=== PATIENT | male | born 1950 | race Caucasian/White ===

== ENCOUNTER 2016-05-29 08:00 | Outpatient (CLI) | payer MEDICARE | END 2016-05-29 23:59 | DX: R05 Cough (principal); Z12.5 Encounter for screening for malignant neoplasm of prostate | CPT/HCPCS: 36415; 80053; 80061; 82274; 83721; 85025; G0103 ==

== ENCOUNTER 2016-06-01 08:00 | Outpatient (CLI) | payer MEDICARE | END 2016-06-01 23:59 | DX: E78.5 Hyperlipidemia, unspecified (principal) ==

== ENCOUNTER 2016-08-15 13:50 | Outpatient (CLI) | payer MEDICARE | END 2016-08-15 13:51 | disposition home or self-care (01) | DX: D72.829 Elevated white blood cell count, unspecified (principal) ==

== ENCOUNTER 2017-01-17 10:59 | Outpatient (CLI) | payer MEDICARE ==
[2017-01-17 19:39] LABS: CHOL/HDL RATIO 6.1 (<5.0); CHOLESTEROL 202 mg/dL; HDL CHOLESTEROL 33 mg/dL; LDL/HDL RATIO 3.4 (<3.6); TRIGLYCERIDES 281 mg/dL; VLDL CHOLESTEROL 56 mg/dL
== END 2017-01-17 11:00 | disposition home or self-care (01) ==
LOC: LAB.F 10:59
PROVIDERS: ATTEND Nurse Practitioner Family
DX: E78.5 Hyperlipidemia, unspecified (principal)
CPT/HCPCS: 36415; 80061

== ENCOUNTER 2017-06-13 09:46 | Outpatient (CLI) | payer MEDICARE ==
[2017-06-13 18:09] LABS: CHOLESTEROL 175 mg/dL; HDL CHOLESTEROL 35 mg/dL; LDL CHOLESTEROL,CALCULATED 111 mg/dL; LDL/HDL RATIO 3.2 (<3.6); VLDL CHOLESTEROL 29 mg/dL
== END 2017-06-13 09:47 | disposition home or self-care (01) ==
LOC: LAB.F 09:46
PROVIDERS: ATTEND Family Medicine
DX: E78.5 Hyperlipidemia, unspecified (principal)
CPT/HCPCS: 36415; 80061; 83721

== ENCOUNTER 2017-12-20 10:58 | Outpatient (CLI) | payer MEDICARE ==
[2017-12-20 18:56] LABS: CHOL/HDL RATIO 7.4 (<5.0); CHOLESTEROL 222 mg/dL; HDL CHOLESTEROL 30 mg/dL
[2017-12-20 19:31] LABS: LDL CHOLESTEROL,DIRECT 67 mg/dL; LDLD/HDL RATIO 2.2 (<3.6)
== END 2017-12-20 10:59 | disposition home or self-care (01) ==
LOC: LAB.F 10:58
PROVIDERS: ATTEND Nurse Practitioner Family
DX: E78.5 Hyperlipidemia, unspecified (principal); Z12.5 Encounter for screening for malignant neoplasm of prostate
CPT/HCPCS: 36415; 80061; 83721; G0103; 84153

== ENCOUNTER 2018-03-27 10:39 | Outpatient (CLI) | payer MEDICARE ==
[2018-03-27 18:16] LABS: BASOPHILS % (AUTO) 0.3 %; EOSINOPHILS % (AUTO) 0.4 %; HGB - HEMOGLOBIN 15.8 g/dL (14.0-18.0); LYMPHOCYTES % (AUTO) 79.3 %; MEAN CORPUSCULAR HEMOGLOBIN 32.6 pg (27.0-31.0); MEAN CORPUSCULAR HGB CONC 33.3 g/dL (32.0-36.0); MEAN PLATELET VOLUME 9.3 fL (7.4-11.4); MONOCYTES % (AUTO) 1.7 %; NEUTROPHILS % (AUTO) 18.3 %; PLT - PLATELET COUNT 150 10^3/uL (130-450); RED BLOOD COUNT 4.85 10^6/uL (4.70-6.10); RED CELL DISTRIBUTION WIDTH 13.1 % (12.0-15.0); WHITE BLOOD COUNT 17.3 x10^3/uL (4.8-10.8)
[2018-03-27 18:21] LABS: ABNORMAL LYMPHS % (MANUAL) 0 %
[2018-03-27 18:26] LABS: ALBUMIN 4.3 g/dL (3.2-5.5); ALBUMIN/GLOBULIN RATIO 1.6 (1.0-2.2); BILIRUBIN,TOTAL 1.5 mg/dL (0.2-1.0); CREATININE 0.7 mg/dL (0.6-1.2)
[2018-03-27 18:28] LABS: PSA FREE 0.33 ng/mL (0.16-2.81)
[2018-03-27 18:29] LABS: PSA TOTAL 1.67 ng/mL (0.000-2.000)
[2018-03-27 18:37] LABS: HB2 TOTAL 17.4 g/dL; HEMOGLOBIN A1C 0.63 g/dL; HEMOGLOBIN A1C % 5.5 % (4.6-6.2)
[2018-03-27 19:12] LABS: BAND NEUTROPHILS % (MANUAL) 1 %; LYMPHOCYTES # (MANUAL) 11.8 10^3/uL (1.5-3.5); LYMPHOCYTES % (MANUAL) 60 %; MONOCYTES # (MANUAL) 0.5 10^3/uL (0.0-1.0); NEUTROPHILS % (MANUAL) 28 %
[2018-03-27 19:16] LABS: DIFFERENTIAL COMMENT MANUAL DIFFERENTIAL; PLATELET ESTIMATE, MANUAL NORMAL (130-450,000) (NORMAL); PLATELET MORPHOLOGY NORMAL APPEARANCE (NORMAL); RBC MORPHOLOGY (MULTIPLE) NORMAL APPEARANCE (NORMAL)
== END 2018-03-27 10:40 | disposition home or self-care (01) ==
LOC: LAB.F 10:39
PROVIDERS: ATTEND Nurse Practitioner Family
DX: R78.9 Finding of unspecified substance, not normally found in blood (principal); R97.20 Elevated prostate specific antigen [PSA]; E78.1 Pure hyperglyceridemia
CPT/HCPCS: 36415; 80053; 83036; 84153; 84154; 85025

== ENCOUNTER 2018-04-24 14:07 | Outpatient (CLI) | payer MEDICARE | END 2018-04-24 14:08 | disposition home or self-care (01) | LOC: LAB.F 14:07 | PROVIDERS: ATTEND Nurse Practitioner Family | DX: E78.1 Pure hyperglyceridemia (principal) | CPT/HCPCS: 36415; 84443 ==

== ENCOUNTER 2019-03-31 14:33 | Outpatient (CLI) | payer MEDICARE ==
[2019-03-31 17:58] LABS: BASOPHILS % (AUTO) 0.2 %; EOSINOPHILS % (AUTO) 0.2 %; HGB - HEMOGLOBIN 15.3 g/dL (14.0-18.0); LYMPHOCYTES % (AUTO) 87.8 %; MEAN CORPUSCULAR HEMOGLOBIN 33.3 pg (27.0-31.0); MEAN CORPUSCULAR HGB CONC 34.1 g/dL (32.0-36.0); MEAN CORPUSCULAR VOLUME 97.6 fL (80.0-94.0); MONOCYTES % (AUTO) 1.9 %; NEUTROPHILS % (AUTO) 9.7 %; PLT - PLATELET COUNT 141 10^3/uL (130-450); RED CELL DISTRIBUTION WIDTH 12.6 % (12.0-15.0); WHITE BLOOD COUNT 29.7 x10^3/uL (4.8-10.8)
[2019-03-31 18:19] LABS: ABNORMAL LYMPHS % (MANUAL) 0 %
[2019-03-31 18:32] LABS: BAND NEUTROPHILS % (MANUAL) 1 %; LYMPHOCYTES # (MANUAL) 26.4 10^3/uL (1.5-3.5); LYMPHOCYTES % (MANUAL) 89 %; MONOCYTES # (MANUAL) 0.3 10^3/uL (0.0-1.0)
[2019-03-31 18:33] LABS: DIFFERENTIAL COMMENT MANUAL DIFFERENTIAL; PLATELET ESTIMATE, MANUAL NORMAL (130-450,000) (NORMAL); PLATELET MORPHOLOGY NORMAL APPEARANCE (NORMAL); RBC MORPHOLOGY (MULTIPLE) NORMAL APPEARANCE (NORMAL)
[2019-03-31 18:37] LABS: CHOL/HDL RATIO 6.6 (<5.0); CHOLESTEROL 217 mg/dL; HDL CHOLESTEROL 33 mg/dL; LDL CHOLESTEROL,CALCULATED 109 mg/dL; LDL/HDL RATIO 3.3 (<3.6); VLDL CHOLESTEROL 75 mg/dL
[2019-03-31 20:21] LABS: PSA FREE 0.28 ng/mL (0.16-2.81)
[2019-03-31 20:23] LABS: PSA TOTAL 1.079 ng/mL (0.000-2.000)
== END 2019-03-31 14:34 | disposition home or self-care (01) ==
LOC: LAB.S 14:33
PROVIDERS: ATTEND Registered Nurse
DX: E78.1 Pure hyperglyceridemia (principal); Z12.5 Encounter for screening for malignant neoplasm of prostate; D72.829 Elevated white blood cell count, unspecified
CPT/HCPCS: 36415; 80061; 83721; 84153; 84154; 84443; 85025

== ENCOUNTER 2019-12-29 12:07 | Outpatient (CLI) | payer MEDICARE | END 2019-12-29 12:08 | disposition home or self-care (01) | LOC: DI.S 12:07 | PROVIDERS: ATTEND Registered Nurse | DX: M54.6 Pain in thoracic spine (principal) ==